=== PATIENT | male | born 1970 | race Caucasian/White ===

== ENCOUNTER 2018-12-31 12:08 | Emergency (ER) | payer MEDICARE, OTHER ==
[~2018-12-31] VITALS: Ht 172.7 cm; Wt 81.7 kg
[2018-12-31] MEDS ORDERED: PROZAC20 MG PO (12:18)
[2018-12-31] MEDS ORDERED: ZYPREXA10 MG PO (12:18)
[2018-12-31] MEDS ORDERED: ACID REDUCER150 MG PO (12:18)
[2018-12-31] MEDS ORDERED: LOVASTATIN40 MG PO (12:19)
[2018-12-31] MEDS ORDERED: HYDROXYZINE HCL50 MG PO (12:19)
[2018-12-31] MEDS ORDERED: MOTRIN IB200 MG PO (12:20)
[2018-12-31] MEDS ORDERED: HYDROXYZINE HCL25 MG PO (12:43)
[2018-12-31] MEDS ORDERED: CHLORDIAZEPOXID25 MG PO (12:43)
[2018-12-31] MEDS ORDERED: ONDANSETRON ODT8 MG PO (12:43)
--- OUTSIDE RECORDS SUMMARY | 2018-12-31 13:42 | XMS ---
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 No recent Security Events currently on file CRITERIA MET - 6 ED Visits in 6 Months - [facility] - [facility] - 2 Visits in 30 Days CARE PROVIDERS ALEKS [facility] [place] 02/23/2015-Current PHONE: Unknown JOSE COREY Counselor: Professional Current PHONE: [phone] [facility]/Center: Mental Health 09/26/2018-[facility] for (Including [facility]) PHONE: [phone] [facility] Mental Health Provider 09/26/2018-[facility] PHONE: [phone] JUVE RUFFIN Primary Care Current PHONE: Unknown JOSE COREY Primary Care Current PHONE: Unknown TOM DENTON Primary Care [facility] PHONE: Unknown FLOYD FINK Primary Care Current PHONE: Unknown FLOYD FINK Primary Care 02/23/2015-Current PHONE: [phone] Terrance has no Care Guidelines for this patient. Liana VISIT COUNT (12 MO.) 1 Tom Denton [address] 2 [facility] [address] [facility]. 2 [facility] 2 [facility] 1 MARCELLA Amezcua . TOTAL 36 NOTE: Visits indicate total known visits. ED/UCC VISIT TRACKING (12 MO.) 12/31/2018 12:10 MARCELLA Reyes [place] TYPE: Emergency COMPLAINT: - SHAKES, WITHDRAWLS 12/29/2018 16:43 [facility] DIAGNOSES: 02052. SUICIDAL THOUGHTS 44269. Alcohol dependence, uncomplicated 73484. Suicidal ideations 10/30/2018 14:55 [facility] [place] [facility] DIAGNOSES: 42874. L SHOULDER PAIN LIFTING HEAVY LOAD OF WOOD 75959. Strain of unspecified muscle, fascia and tendon at shoulder and upper arm level, left arm, initial encounter 10/07/2018 18:08 [facility] [place] [facility] DIAGNOSES: 33274. R ARM PAIN FELL OFF LADDER 6FT 09/25/2018 21:10 [facility] J[place] TYPE: Emergency DIAGNOSES: - Suicidal ideations - Homelessness - Schizophrenia, unspecified - Other psychoactive substance abuse, uncomplicated - Suicidal Thoughts - Suicidal 09/23/2018 22:09 [facility] TYPE: Psychiatric Emergency DIAGNOSES: - Unspecified mood [affective] disorder - SI - Other stimulant abuse, uncomplicated 09/23/2018 17:20 [facility] MATHEUS Rhodes TYPE: Emergency DIAGNOSES: - Hallucinations, unspecified - Hallucinations - Drug / Alcohol Assessment 09/22/2018 19:37 [facility] MATHEUS Rhodes TYPE: Emergency DIAGNOSES: - Altered mental status, unspecified - Suicidal ideations - Suicidal 09/22/2018 10:43 [facility] [place] TYPE: Emergency COMPLAINT: - 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 Other stimulant abuse, uncomplicated 2. Nicotine dependence, cigarettes, uncomplicated 09/13/2018 10:40 [facility] [place] TYPE: Emergency COMPLAINT: - Cough - Chest pain on breathing - Shortness of breath DIAGNOSES: 1. Acute upper respiratory infection, unspecified 2. Nicotine dependence, cigarettes, uncomplicated 09/08/2018 09:58 [facility] [place] TYPE: Emergency COMPLAINT: - Pain in right knee DIAGNOSES: 1. Sprain of unspecified site of right knee, initial encounter 2. Fall from bed, initial encounter 3. Nicotine dependence, cigarettes, uncomplicated 09/03/2018 22:18 [facility] TYPE: Emergency DIAGNOSES: - Thumb Pain - Unspecified sprain of right thumb, initial encounter - Thumb Injury 09/01/2018 07:41 [facility] TYPE: Psychiatric Emergency DIAGNOSES: - Rx Refill - Schizophrenia, unspecified 08/30/2018 18:47 [facility] [place] [facility] DIAGNOSES: 72363. SUICIDAL THOUGHTS 19498. Suicidal ideations 83838. Encounter for issue of repeat prescription 08/03/2018 17:27 [facility] [place] [facility] DIAGNOSES: 67646. RASH 33457. Allergic contact dermatitis due to plants, except food 07/03/2018 12:06 [facility] TYPE: Emergency DIAGNOSES: - Hand Pain - Burn of unspecified degree of back of left hand, initial encounter 06/09/2018 18:05 [facility] [place] [place] TYPE: Emergency DIAGNOSES: 72630. R THUMB / WRIST INJURY SLIPPED AND FELL 88557. Unspecified fracture of navicular [scaphoid] bone of right wrist, initial encounter for closed fracture 04/28/2018 09:05 Suzanne Cerda [place] TYPE: Psychiatric Emergency DIAGNOSES: - Unspecified mood [affective] disorder - Voices, Paranoia 04/26/2018 08:[facility] [place] [facility] DIAGNOSES: - Hand Pain - Unspecified injury of right wrist, hand and finger(s), initial encounter 04/23/2018 10:27 Suzanne Cerda [place] TYPE: Psychiatric Emergency DIAGNOSES: - Major depressive disorder, single episode, unspecified - severe depression Plus 16 More Visits INPATIENT VISIT TRACKING (12 MO.) No inpatient visits to display in this time frame [id number]
== END 2018-12-31 13:15 | disposition home or self-care (01) ==
LOC: ED 12:08
DX: F41.9 Anxiety disorder, unspecified (principal); F10.239 Alcohol dependence with withdrawal, unspecified; E78.5 Hyperlipidemia, unspecified; F17.200 Nicotine dependence, unspecified, uncomplicated; Z88.5 Allergy status to narcotic agent; Z79.899 Other long term (current) drug therapy
CPT/HCPCS: 99284

== ENCOUNTER 2019-01-01 11:07 | Emergency (ER) | payer MEDICARE, OTHER ==
[~2019-01-01] VITALS: Ht 172.7 cm; Wt 81.7 kg
[~2019-01-01 11:07] MED LIST: ACID REDUCER150 MG PO; CHLORDIAZEPOXID25 MG PO; HYDROXYZINE HCL25 MG PO; HYDROXYZINE HCL50 MG PO; LOVASTATIN40 MG PO; MOTRIN IB200 MG PO; ONDANSETRON ODT8 MG PO; PROZAC20 MG PO; ZYPREXA10 MG PO
--- OUTSIDE RECORDS SUMMARY | 2019-01-01 11:10 | XMS ---
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 - 2 Visits in 30 Days CARE PROVIDERS ALEKS [facility] 02/23/2015-Current PHONE: Unknown JOSE COREY Counselor: Professional Current PHONE: [phone] [facility]/Center: Mental Health 09/26/2018-[facility] for (Including [facility]) PHONE: [phone] [facility] Mental Health Provider 09/26/2018-[facility] PHONE: [phone] JUVE RUFFIN Primary Care Current PHONE: Unknown JOSE COREY Primary Care Current PHONE: Unknown [facility] Primary Care Current PHONE: Unknown FLOYD FINK Primary Care Current PHONE: Unknown FLOYD FINK Primary Care 02/23/2015-Current PHONE: [phone] [facility] 02/23/2015-Current PHONE: [phone] Terrance has no Care Guidelines for this patient. Liana VISIT COUNT (12 MO.) 1 Tom Leary 2 [facility] 5 [facility] 2 [facility] 6 [facility] 12 [place] 3 [facility]. 2 [facility] 2 [facility] 2 MARCELLA Bruno. TOTAL 37 NOTE: Visits indicate total known visits. ED/UCC VISIT TRACKING (12 MO.) 01/01/2019 11:08 MARCELLA Reyes [place] TYPE: Emergency COMPLAINT: - WITHDRAWLS 12/31/2018 12:10 MARCELLA [place] TYPE: Emergency COMPLAINT: - SHAKES, WITHDRAWLS 12/29/2018 [facility] DIAGNOSES: 96547. SUICIDAL THOUGHTS 00029. Alcohol dependence, uncomplicated 99046. Suicidal ideations 10/30/2018 14:55 [facility] [place] [facility] DIAGNOSES: 64063. L SHOULDER PAIN LIFTING HEAVY LOAD OF WOOD 58439. Strain of unspecified muscle, fascia and tendon at shoulder and upper arm level, left arm, initial encounter 10/07/2018 18:08 [facility] [place] [facility] DIAGNOSES: 42130. R ARM PAIN FELL OFF LADDER 6FT 09/25/2018 21:10 [facility] TYPE: Emergency DIAGNOSES: - Suicidal ideations - Homelessness - Schizophrenia, unspecified - Other psychoactive substance abuse, uncomplicated - Suicidal Thoughts - Suicidal 09/23/2018 22:09 [facility] [place] TYPE: Psychiatric Emergency DIAGNOSES: - Unspecified mood [affective] disorder - SI - Other stimulant abuse, uncomplicated 09/23/2018 17:20 [facility] [place] TYPE: Emergency DIAGNOSES: - Hallucinations, unspecified - Hallucinations - Drug / Alcohol Assessment 09/22/2018 19:37 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 Other stimulant abuse, uncomplicated 2. Nicotine dependence, cigarettes, uncomplicated 09/13/2018 10:40 [facility] [place] TYPE: Emergency COMPLAINT: - Cough - Chest pain on breathing - Shortness of breath DIAGNOSES: 1. Acute upper respiratory infection, unspecified 2. Nicotine dependence, cigarettes, uncomplicated 09/08/2018 09:58 [facility] [place] TYPE: Emergency COMPLAINT: - Pain in right knee DIAGNOSES: 1. Sprain of unspecified site of right knee, initial encounter 2. Fall from bed, initial encounter 3. Nicotine dependence, cigarettes, uncomplicated 09/03/2018 22:18 [facility] TYPE: Emergency DIAGNOSES: - Thumb Pain - Unspecified sprain of right thumb, initial encounter - Thumb Injury 09/01/2018 07:41 [facility] [place] TYPE: Psychiatric Emergency DIAGNOSES: - Rx Refill - Schizophrenia, unspecified 08/30/2018 18:47 [facility] [place] TYPE: Emergency DIAGNOSES: 30447. SUICIDAL THOUGHTS . Suicidal ideations . Encounter for issue of repeat prescription 08/03/2018 17:27 [facility] [place] [facility] DIAGNOSES: 95922. RASH 73144. Allergic contact dermatitis due to plants, except food 07/03/2018 12:06 [facility] TYPE: Emergency DIAGNOSES: - Hand Pain - Burn of unspecified degree of back of left hand, initial encounter 06/09/2018 18:05 [facility] [place] [facility] DIAGNOSES: 44811. R THUMB / WRIST INJURY SLIPPED AND FELL . Unspecified fracture of navicular [scaphoid] bone of right wrist, initial encounter for closed fracture 04/28/2018 09:05 [facility] TYPE: Psychiatric Emergency DIAGNOSES: - Unspecified mood [affective] disorder - Voices, Paranoia 04/26/2018 08:47 Nisha Cerda [place] TYPE: Emergency DIAGNOSES: - Hand Pain - Unspecified injury of right wrist, hand and finger(s), initial encounter Plus 17 More Visits INPATIENT VISIT TRACKING (12 MO.) No inpatient visits to display in this time frame [id number]
== END 2019-01-01 11:26 | disposition home or self-care (01) ==
LOC: ED 11:07
DX: F10.239 Alcohol dependence with withdrawal, unspecified (principal); E78.5 Hyperlipidemia, unspecified; F17.200 Nicotine dependence, unspecified, uncomplicated; Z88.5 Allergy status to narcotic agent; Z79.899 Other long term (current) drug therapy
CPT/HCPCS: 99284

== ENCOUNTER 2022-12-20 15:56 | Emergency (ER) | payer MEDICARE, MEDICAID ==
[~2022-12-20] VITALS: Ht 172.7 cm; Wt 81.7 kg
--- OUTSIDE RECORDS SUMMARY | 2022-12-20 15:58 | XMS ---
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 E.D. VISIT COUNT (12 MO.) 4 [facility] [place] 2 [facility] 1 [place] [phone] MARCELLA Genao TOTAL 11 NOTE: Visits indicate total known visits. ED/UCC VISIT TRACKING (12 MO.) 12/20/2022 15:56 MARCELLA Reyes [place] TYPE: Emergency COMPLAINT: - JAW PAIN 12/16/2022 13:30 [facility] [place] TYPE: Emergency DIAGNOSES: . INFECTION IN 2ND TOE ON LT FOOT . Bitten by dog, initial encounter 48092. Cellulitis of right toe . Open bite of right hand, initial encounter 11/25/2022 17:15 [facility] [place] TYPE: Emergency DIAGNOSES: . R KNEE PAIN FELT/HEAD LOUD POP AND KNEE WENT SIDEWAYS 09/17/2022 08:56 [facility] [place] TYPE: Emergency DIAGNOSES: . CHEST PAIN . Other forms of angina pectoris 06/19/2022 13:58 [facility] [place] [facility] DIAGNOSES: . left foot pain no known injury . Cellulitis of left toe . Pain in left toe(s) . Pressure ulcer of other site, unspecified stage 06/07/2022 18:58 [facility] [place] TYPE: Psychiatric Emergency DIAGNOSES: - Other stimulant abuse, uncomplicated - Unspecified psychosis not due to a substance or known physiological condition - [facility] 06/06/2022 21:57 [facility] [place] TYPE: Emergency COMPLAINT: - Unspecified open wound, left foot, initial encounter DIAGNOSES: 1. Unspecified open wound, left foot, initial encounter 2. Other foreign body or object entering through skin, initial encounter 3. Homelessness unspecified 06/05/2022 [facility] [place] [facility] DIAGNOSES: - Other stimulant abuse, uncomplicated - Drug / Alcohol Assessment - Hallucinations - Suicidal 06/05/2022 08:47 [facility] [place] [facility] DIAGNOSES: - Cellulitis of left lower limb - Foot Swelling 02/05/2022 16:39 [facility] TYPE: Psychiatric Emergency DIAGNOSES: - Acute stress reaction - SI 01/19/2022 17:41 [facility] TYPE: Emergency DIAGNOSES: - Chest pain, unspecified - Other stimulant abuse, uncomplicated - Chest Pain - via ems INPATIENT VISIT TRACKING (12 MO.) No inpatient visits to display in this time frame [id number]
[2022-12-20] MEDS ORDERED: HYDROCODON-ACE1 EA10 PO (17:01)
[2022-12-20] MEDS ORDERED: CEPHALEXIN500 M1 PO (17:01)
[2022-12-20 17:06] VITALS: BP 140/82
== END 2022-12-20 17:07 | disposition home or self-care (01) ==
LOC: ED 15:56
DX: K04.7 Periapical abscess without sinus (principal); E78.5 Hyperlipidemia, unspecified; F17.200 Nicotine dependence, unspecified, uncomplicated; Z88.5 Allergy status to narcotic agent; Z79.899 Other long term (current) drug therapy
CPT/HCPCS: 70100; 70110; 99283-25